=== PATIENT | female | born 1945 | race Caucasian/White ===

== ENCOUNTER 2019-06-11 21:38 | Inpatient (IN) | payer MEDICARE, MEDICAID ==
[~2019-06-11] VITALS: Ht 165.1 cm; Wt 87.1 kg
--- NOTE | 2019-06-11 21:55 | NUR ---
BIB FAMILY W/ C/O BILATERAL ANKLES AND R KNEE EDEMA AND PAIN X 1 DAY. NO CARDIAC HX. + HX OF RENAL DX AND ARTHRITIS. HAD IBUFROFEN AND NEURONTING MEDIA PLANNER W/ NO EFFECT.
[2019-06-11] MEDS ORDERED: KETOROLAC TROMETHAMINE 15 MG/ML VIAL ONE (22:45)
[2019-06-11] MEDS ORDERED: MORPHINE SULFATE INJ 4 MG/ML DISP.SYRIN ONE (22:45)
[2019-06-11] MEDS ORDERED: MORPHINE SULFATE INJ 2 MG/ML DISP.SYRIN IV ONE (23:00)
[2019-06-11] MEDS ORDERED: KETOROLAC TROMETHAMINE INJ 30 MG/ML VIAL IV ONE (23:00)
[2019-06-11 23:05] LABS: BASOPHILS % (AUTO) 0.5 % (0.0-2.0); EOSINOPHILS % (AUTO) 1.2 % (0.0-6.0); HEMATOCRIT 33 % (33-45); HEMOGLOBIN 10.8 g/dL (11.5-14.8); LYMPHOCYTES # (AUTO) 1.7 /CMM (0.8-4.8); LYMPHOCYTES % (AUTO) 19.6 % (20.0-44.0); MEAN CORPUSCULAR HGB CONC 33 g/dl (31.0-36.0); MEAN CORPUSCULAR VOLUME 89 fL (82-100); MONOCYTES # (AUTO) 0.9 /CMM (0.1-1.30); MONOCYTES % (AUTO) 10.2 % (2.0-12.0); NEUTROPHILS # (AUTO) 6.1 /CMM (1.8-8.9); NEUTROPHILS % (AUTO) 68.5 % (43.0-81.0); PLATELET COUNT (AUTO) 193 /CMM (150-450); RED BLOOD CELL COUNT(AUTO) 3.66 MIL/uL (4.0-5.2); WHITE BLOOD COUNT (AUTO) 8.9 K/uL (4.3-11.0)
[2019-06-11 23:16] LABS: CALCIUM, SERUM 10.1 mg/dL (8.5-10.1); CARBON DIOXIDE 24 mmol/L (21-32); CHLORIDE 101 mmol/L (98-107); CREATININE 1.7 mg/dL (0.6-1.3); GLUCOSE 210 mg/dL (74-106); POTASSIUM 4.7 mmol/L (3.5-5.1); SODIUM SERUM 137 mmol/L (136-145); UREA NITROGEN, BLOOD 27 mg/dL (7-18)
--- NOTE | 2019-06-11 23:30 | NUR ---
US TECH AT THE BED SIDE
[2019-06-11 23:32] LABS: ALANINE AMINOTRANSFERASE 35 U/L (12-78); ALBUMIN 3.7 g/dL (3.4-5.0); ALKALINE PHOSPHATASE 78 U/L (46-116); ASPARTATE AMINOTRANSFERASE 25 U/L (15-37); B-TYPE NATRIURETIC PEPTIDE 588 PG/ML (0-125); BILIRUBIN,DIRECT 0.2 mg/dL (0.0-0.2); BILIRUBIN,TOTAL 0.8 mg/dL (0.2-1.0); TOTAL PROTEIN, SERUM 8.6 g/dL (6.4-8.2)
--- NOTE | 2019-06-12 01:15 | NUR ---
Patient is resting comfortably in bed with eyes closed. Easily aroused. VSS
[2019-06-12] MEDS ORDERED: FUROSEMIDE 40 MG/4 ML VIAL IV ONE (01:30)
[2019-06-12] MEDS ORDERED: FUROSEMIDE 40 MG/4 ML VIAL ONE (01:30)
[2019-06-12] MEDS ORDERED: DEXAMETHASONE SOD PHOSPHATE 10 MG/ML VIAL ONE (02:27)
[2019-06-12] MEDS ORDERED: DEXAMETHASONE SOD PHOSPHATE 10 MG/ML VIAL IV ONE (02:30)
--- NOTE | 2019-06-12 02:49 | NUR ---
REPORT GIVEN TO SEUN PULIDO
[2019-06-12 03:00] VITALS: BP 145/67
--- NOTE | 2019-06-12 03:17 | NUR ---
PT WAS TRANSFERRED TO 310 UNDER ACLS PROTOCOL
[2019-06-12 03:30] VITALS: BP 145/67
[2019-06-12] MEDS ORDERED: ONDANSETRON HCL/PF 4 MG/2 ML VIAL IVP PRN (03:30)
[2019-06-12] MEDS ORDERED: ZOLPIDEM TARTRATE 5 MG TABLET PO PRN (03:30)
[2019-06-12] MEDS ORDERED: Z GUARD REMEDY 2 OZ OINT TP PRN (03:30)
[2019-06-12] MEDS ORDERED: ENOXAPARIN SODIUM 40 MG/0.4 ML DISP.SYRIN SQ SCH ×2 (03:30→09:00)
[2019-06-12] MEDS ORDERED: BUMETANIDE INJ 4 MG in IV NS 0.9% 24 ML IV ONE (03:30)
--- NOTE | 2019-06-12 03:30 | NUR ---
TELE/RN OPENING NOTES PT ARRIVED TO UNIT FROM ER VIA GURNEY. PT A/OX3. PLACED ON 2L O2 VIA NC, BREATHING EVEN AND UNLABORED. DENIES SOB AND PAIN AT THIS TIME. ONLY C/O WHEN TOUCHING BLE. IV TO RIGHT HAND PATENT AND INTACT. PLACED ON CORRECTIONAL SUPERVISOR, SHOWS SR 70'S. ORIENTED PT TO ROOM AND CALL LIGHT. BED IN LOW/LOCKED POSITION WITH CALL LIGHT IN REACH. HOB ELEVATED, BILAT. UPPER SIDE RAILS IN PLACE. BED ALARM ON FOR SAFETY. WILL CONTINUE TO MONITOR
[2019-06-12] MEDS ORDERED: BUMETANIDE INJ 0.25 MG/ML VIAL ONE (04:01)
[2019-06-12] MEDS: ENOXAPARIN SODIUM 30 MG/0.3 ML DISP.SYRIN SQ SCH (04:33)
[2019-06-12 04:54] LABS: BASOPHILS % (AUTO) 0.2 % (0.0-2.0); EOSINOPHILS % (AUTO) 0.5 % (0.0-6.0); HEMATOCRIT 32 % (33-45); HEMOGLOBIN 10.5 g/dL (11.5-14.8); LYMPHOCYTES # (AUTO) 1.1 /CMM (0.8-4.8); LYMPHOCYTES % (AUTO) 15.4 % (20.0-44.0); MEAN CORPUSCULAR HGB CONC 33 g/dl (31.0-36.0); MEAN CORPUSCULAR VOLUME 89 fL (82-100); MONOCYTES # (AUTO) 0.6 /CMM (0.1-1.30); MONOCYTES % (AUTO) 7.8 % (2.0-12.0); NEUTROPHILS # (AUTO) 5.4 /CMM (1.8-8.9); NEUTROPHILS % (AUTO) 76.1 % (43.0-81.0); PLATELET COUNT (AUTO) 173 /CMM (150-450); RED BLOOD CELL COUNT(AUTO) 3.56 MIL/uL (4.0-5.2); WHITE BLOOD COUNT (AUTO) 7.1 K/uL (4.3-11.0)
[2019-06-12 05:07] LABS: CALCIUM, SERUM 9.7 mg/dL (8.5-10.1); CARBON DIOXIDE 21 mmol/L (21-32); CHLORIDE 102 mmol/L (98-107); CREATININE 1.7 mg/dL (0.6-1.3); GLUCOSE 293 mg/dL (74-106); MAGNESIUM 1.6 mg/dL (1.8-2.4); PHOSPHORUS 4.3 mg/dL (2.5-4.9); POTASSIUM 4.5 mmol/L (3.5-5.1); SODIUM SERUM 137 mmol/L (136-145); UREA NITROGEN, BLOOD 27 mg/dL (7-18)
--- NOTE | 2019-06-12 06:31 | NUR ---
TELE/RN CLOSING NOTES PT ASLEEP, RESPONSIVE TO NAME. A/OX2-3. ON 2L O2 VIA NC, BREATHING EVEN AND UNLABORED. DENIES SOB AND PAIN AT THIS TIME, LONG LEGS ARE STATIONARY. IV TO RIGHT HAND RUNNING IVF BUMEX AT 10ML/HR. ON TELE MONITOR SHOWING SR 64. BED IN LOW/LOCKED POSITION WITH CALL LIGHT IN REACH. HOB ELEVATED. BILAT. UPPER SIDE RAILS IN PLACE. WILL ENDORSE TO DAY SHIFT RN ALDA.
--- NOTE | 2019-06-12 07:56 | NUR ---
BUTT MAKER NOTES PATIENT RECEIVED RESTING INSIDE ROOM. SLEEPING, EASILY AROUSABLE THROUGH VERBAL AND TACTILE STIMULI. BREATHING EVEN AND UNLABORED. NO ACUTE DISTRESS. NO C/O PAIN AT THIS TIME. PATIENT CALM AND RELAXED. CONTINUE WITH TELEMETRY, EDUCATIONAL/DEVELOPMENT ASSISTANT IN PLACE, SR. SAFETY PRECAUTIONS IN PLACE. WILL CONTINUE TO MONITOR. BED LOCKED AND IN LOW POSITION. BILATERAL UPPER SIDE RAILS UP AND LOCKED. CALL LIGHT WITHIN EASY REACH
[2019-06-12 08:00] VITALS: BP 136/81
[2019-06-12] MEDS ORDERED: NEBI5TAB8 PO (08:24)
[2019-06-12] MEDS ORDERED: ASPI-1152 PO (08:24)
[2019-06-12] MEDS ORDERED: ROSU10TA2 PO (08:24)
[2019-06-12] MEDS ORDERED: LEVO125T8 PO (08:24)
[2019-06-12] MEDS ORDERED: GLIM4TAB2 PO (08:24)
[2019-06-12] MEDS ORDERED: INSU100C10 SQ (08:24)
[2019-06-12] MEDS ORDERED: OLME40TA12 PO (08:24)
[2019-06-12] MEDS ORDERED: Medication Not On Formulary EA (Olmesartan Medoxomil (Benicar) 40 MG) PO SCH (09:00)
[2019-06-12] MEDS ORDERED: ASPIRIN EC 81 MG TABLET.DR PO SCH (09:00)
[2019-06-12] MEDS: LEVOTHYROXINE SODIUM 125 MCG TABLET PO SCH (09:29)
[2019-06-12] MEDS: ASPIRIN EC 81 MG TABLET.DR PO SCH (09:29)
[2019-06-12] MEDS: GLIMEPIRIDE 4 MG TABLET PO SCH ×2 (09:29→21:27)
[2019-06-12] MEDS: Magnesium 1GM/D5W 100ML PREMIX 100 ML IV SCH ×2 (09:29→10:39)
[2019-06-12] MEDS: LOSARTAN POTASSIUM 50 MG TABLET PO SCH (09:29)
[2019-06-12 10:33] LABS: THYROID STIMULATING HORMONE 1.239 uIU/mL (0.358-3.74)
[2019-06-12] MEDS ORDERED: INSULIN REGULAR, HUMAN 100 UNIT/ML 3 ML VIAL SQ PRN (12:00)
[2019-06-12] MEDS ORDERED: DEXTROSE 50%-WATER 50 ML DISP.SYRIN IV PRN (12:00)
[2019-06-12] MEDS: BLOOD SUGAR DIAGNOSTIC 1 EACH STRIP IN SCH ×3 (12:15→21:27)
--- NOTE | 2019-06-12 12:15 | NUR ---
MS RN NOTES PATIENT FSBS INITIAL RESULT 493. RECHECKED WITH RESULT OF 510. DR ADAMS PRESENT AT UNIT AND MADE AWARE. GAVE OK TO CONTINUE INSULIN ADMINISTRATION PER MILD SLIDING SCALE. PATIENT MADE AWARE AND VERBALIZED UNDERSTANDING. WILL ADMINISTER INSULIN PER SLIDING SCALE. WILL CONTINUE TO MONITOR
[2019-06-12 16:00] VITALS: BP 149/83
--- NOTE | 2019-06-12 16:32 | NUR ---
MS RN NOTES URINE COLLECTED AND SENT TO LAB
[2019-06-12 17:57] LABS: CREATININE, URINE 35.4 MG/DL (30.0-125.0); URINE TOTAL PROTEIN 7.5 mg/dL (0-11.9)
--- NOTE | 2019-06-12 18:10 | NUR ---
MS RN NOTES FSBS TAKEN WITH RESULT OF 442, RECHECKED WITH RESULT OF 459. PLACED CALL TO DR ADAMS AND MADE AWARE. WITH NEW ORDER TO CHANGE INSULIN SLIDING SCALE TO AGGRESSIVE. ORDER NOTED AND CARRIED OUT. PATIENT MADE AWARE AND VERBALIZED UNDERSTANDING. INSULIN ADMINISTERED ORDERED. WILL CONTINUE TO MONITOR
[2019-06-12] MEDS: INSULIN REGULAR, HUMAN 100 UNIT/ML 3 ML VIAL SQ PRN (18:23)
[2019-06-12 18:30] LABS: APPEARANCE,URINE CLEAR (CLEAR); BILIRUBIN,URINE NEGATIVE (NEGATIVE); BLOOD, URINE TRACE-INTA Ery/uL (NEGATIVE); COLOR,URINE YELLOW (YELLOW); KETONES,URINE NEGATIVE (NEGATIVE); LEUKOCYTE ESTERASE ,URINE NEGATIVE (NEGATIVE); NITRITE, URINE NEGATIVE (NEGATIVE); PH,URINE 5.5 (5.0-8.0); PROTEIN,URINE NEGATIVE (NEGATIVE); UGLUCOSE 3+ mg/dL (NEGATIVE); UROBILINOGEN,URINE 0.2 EU/dL (0.2)
--- NOTE | 2019-06-12 18:35 | NUR ---
MS RN NOTES PATIENT RESTING INSIDE ROOM. AWAKE, ALERT AND ORIENTED, VERBALLY RESPONSIVE AND RESPONDS TO VERBAL AND TACTILE STIMULI. BREATHING EVEN AND UNLABORED. NO ACUTE DISTRESS. NO CHANGES IN LOC NOTED. PATIENT KEPT CLEAN, DRY AND COMFORTABLE. WILL ENDORSE TO INCOMING SHIFT FOR ALDA. BED LOCKED AND IN LOW POSITION. BILATERAL UPPER SIDE RAILS UP AND LOCKED. CALL LIGHT WITHIN EASY REACH
[2019-06-12 18:42] LABS: BACTERIA,URINE None seen /HPF (None Seen); SQUAMOUS EPITHELIAL CELL,UR Rare /HPF (None Seen); WBC,URINE 0-2 /HPF (0-3)
[2019-06-12 18:54] LABS: EOSINOPHIL,URINE None Seen
--- NOTE | 2019-06-12 19:50 | NUR ---
MS RN NOTE: PATIENT RESTING IN BED, NO ACUTE DISTRESS NOTED. BREATHING EVEN AND UNLABORED, NO SOB NOTED. NO S/S OF HYPER/HYPOGLYCEMIA NOTED. BED LOCKED AND IN LOWEST POSITION, CALL LIGHT IN REACH. WILL CONTINUE TO MONITOR.
[2019-06-12 20:00] VITALS: BP 113/51
[2019-06-12] MEDS: METOPROLOL TARTRATE 25 MG TABLET PO SCH (21:27)
[2019-06-12] MEDS: ATORVASTATIN 10 MG TABLET PO SCH (21:28)
[2019-06-12] MEDS: *INSULIN REGULAR(HUMULIN R)HUM 100 UNIT/ML VIAL SQ PRN (21:37)
--- NOTE | 2019-06-12 21:45 | NUR ---
MS RN NOTE: PATIENT BLOOD SUGAR LEVEL 493MG/DL, REPEAT BLOOD SUGAR CHECK 469MG/DL, 10 UNITS OF INSULIN GIVEN PER SLIDING SCALE. PATIENT ALREADY CHANGED TO AGGRESSIVE SLIDING SCALE DURING DAYSHIFT. PATIENT DENIES ANY S/S OF HYPERGLYCEMIA LIKE INCREASE THIRST. CURTAIN STRETCHER ASSEMBLER RICH NUNES, CLOTH DRIER INFORMED WITH NO NEW ORDERS AND TO ADMINISTER SLIDING SCALE ORDERED AND TO CONTINUE TO MONITOR.
[2019-06-12] MEDS ORDERED: Medication Not On Formulary EA (Rosuvastatin Calcium (Crestor) 10 MG) PO SCH (22:00)
[2019-06-12] MEDS: ACETAMINOPHEN 325 MG TABLET PO PRN (22:05)
--- NOTE | 2019-06-12 23:15 | NUR ---
MS RN NOTE: PATIENT BLOOD SUGAR RECHECKED 450MG/DL, SLOWING TRENDING DOWN. NO S/S OF HYPERGLYCEMIA NOTED. WILL CONTINUE TO MONITOR.
[2019-06-13] MEDS: ENOXAPARIN SODIUM 30 MG/0.3 ML DISP.SYRIN SQ SCH (03:34)
--- NOTE | 2019-06-13 06:45 | NUR ---
MS RN NOTE: PATIENT RESTING IN BED, NO ACUTE DISTRESS NOTED. BREATHING EVEN AND UNLABORED, NO SOB NOTED. PATIENT BLOOD SUGAR LEVEL 346MG/DL, TO RECEIVE 16 UNITS OF INSULIN PER SLIDING SCALE, NO S/S OF HYPER/HYPOGLYCEMIA NOTED. BED LOCKED AND IN LOWEST POSITION, CALL LIGHT IN REACH. WILL ENDORSE TO DAY NURSE TO CONTINUE WITH PLAN OF CARE.
[2019-06-13 06:50] LABS: ALANINE AMINOTRANSFERASE 26 U/L (12-78); ALBUMIN 3.3 g/dL (3.4-5.0); ALKALINE PHOSPHATASE 71 U/L (46-116); ASPARTATE AMINOTRANSFERASE 9 U/L (15-37); BILIRUBIN,TOTAL 0.4 mg/dL (0.2-1.0); CALCIUM, SERUM 10.3 mg/dL (8.5-10.1); CARBON DIOXIDE 26 mmol/L (21-32); CHLORIDE 96 mmol/L (98-107); CREATININE 2.4 mg/dL (0.6-1.3); GLUCOSE 344 mg/dL (74-106); MAGNESIUM 2.4 mg/dL (1.8-2.4); PHOSPHORUS 4.8 mg/dL (2.5-4.9); POTASSIUM 4.1 mmol/L (3.5-5.1); SODIUM SERUM 132 mmol/L (136-145); TOTAL PROTEIN, SERUM 8.2 g/dL (6.4-8.2); UREA NITROGEN, BLOOD 57 mg/dL (7-18)
[2019-06-13] MEDS: BLOOD SUGAR DIAGNOSTIC 1 EACH STRIP IN SCH ×4 (06:50→22:09)
[2019-06-13] MEDS: INSULIN REGULAR, HUMAN 100 UNIT/ML 3 ML VIAL SQ PRN ×3 (06:50→17:44)
[2019-06-13 06:51] LABS: BASOPHILS % (AUTO) 0.2 % (0.0-2.0); EOSINOPHILS % (AUTO) 0.1 % (0.0-6.0); HEMATOCRIT 33 % (33-45); HEMOGLOBIN 10.9 g/dL (11.5-14.8); LYMPHOCYTES # (AUTO) 1.6 /CMM (0.8-4.8); LYMPHOCYTES % (AUTO) 15.8 % (20.0-44.0); MEAN CORPUSCULAR HGB CONC 33 g/dl (31.0-36.0); MEAN CORPUSCULAR VOLUME 88 fL (82-100); MONOCYTES # (AUTO) 1.1 /CMM (0.1-1.30); NEUTROPHILS # (AUTO) 7.3 /CMM (1.8-8.9); NEUTROPHILS % (AUTO) 72.9 % (43.0-81.0); PLATELET COUNT (AUTO) 263 /CMM (150-450); RED BLOOD CELL COUNT(AUTO) 3.76 MIL/uL (4.0-5.2)
[2019-06-13 06:57] LABS: CHOLESTEROL 199 mg/dL (<200); CREATINE KINASE, TOTAL 118 U/L (26-192); HDL CHOLESTEROL 47 mg/dL (40-60); LDL 122 mg/dL (0-99); THYROID STIMULATING HORMONE 0.929 uIU/mL (0.358-3.74); TRIGLYCERIDES 174 mg/dL (30-150)
[2019-06-13 07:00] LABS: IRON, SERUM 28 ug/dl (50-175); TOTAL IRON BINDING CAPACITY 226 ug/dl (250-450)
[2019-06-13] MEDS: ACETAMINOPHEN 325 MG TABLET PO PRN ×2 (07:34→17:55)
--- NOTE | 2019-06-13 07:40 | NUR ---
MS RN RECEIVED ON BED, AWAKE,ALERT,ORIENTED X3,NOT IN ANY FORM OF DISTRESS, RESPIRATIONS EVEN AND UNLABORED,NO SOB NOTED,LUNGS ARE CLEAR,ABDOMEN SOFT,POSITIVE BOWEL SOUNDS,DENIES PAIN AT THIS TIME, ALL NEEDS ATTENDED.
[2019-06-13 08:00] VITALS: BP 122/65
[2019-06-13 08:46] VITALS: BP 116/60
[2019-06-13] MEDS: ASPIRIN EC 81 MG TABLET.DR PO SCH (08:50)
[2019-06-13] MEDS: LEVOTHYROXINE SODIUM 125 MCG TABLET PO SCH (08:51)
[2019-06-13] MEDS: LOSARTAN POTASSIUM 50 MG TABLET PO SCH (08:52)
[2019-06-13] MEDS: GLIMEPIRIDE 4 MG TABLET PO SCH ×2 (08:53→20:37)
[2019-06-13] MEDS: METOPROLOL TARTRATE 25 MG TABLET PO SCH ×2 (08:55→20:38)
--- NOTE | 2019-06-13 09:00 | NUR ---
MS PULIDO BREAKFAST SERVED,DUE MEDS GIVEN,TOLERATED WELL.
--- NOTE | 2019-06-13 10:30 | NUR ---
MS RN WAS SEEN BY DR. OSWALDO Murry/ SANDIE MADE AND CARRIED OUT.
[2019-06-13] MEDS: COLCHICINE 0.6 MG TABLET PO SCH (11:45)
[2019-06-13 12:07] LABS: *SPE ALBUMIN 3.6 g/dL (2.9-4.4); *SPE ALPHA-1-GLOBULIN 0.3 g/dL (0.0-0.4); *SPE ALPHA-2-GLOBULIN 1.1 g/dL (0.4-1.0); *SPE BETA GLOBULIN 1.3 g/dL (0.7-1.3); *SPE GLOBULIN, TOTAL 3.7 g/dL (2.2-3.9); *SPE M-SPIKE Not Observed g/dL (Not Observed); *SPEGAMMA GLOBULIN 1.1 g/dL (0.4-1.8)
--- NOTE | 2019-06-13 14:00 | NUR ---
MS RN WAS SEEN BY ЕЛЕНА ,WAS ABLE TO SPEAK W/ DAUGHTER,ALL NEEDS ATTENDED.
[2019-06-13 16:00] VITALS: BP 140/80
[2019-06-13] MEDS: predniSONE 20 MG TABLET PO SCH (17:38)
[2019-06-13] MEDS: DOCUSATE SODIUM 100 MG CAPSULE PO SCH (17:41)
[2019-06-13] MEDS: IV NS 0.9% 1,000 ML IV PRN (17:59)
--- NOTE | 2019-06-13 18:00 | NUR ---
MS PULIDO BS- 199 - 4 UNITS OF REGULAR INSULIN GIVEN.
--- NOTE | 2019-06-13 18:56 | NUR ---
MS RN ON BED, NO INSULIN GIVEN,ALL NEEDS ATTENDED.
--- NOTE | 2019-06-13 19:55 | NUR ---
RN NOTES RECEIVED PATIENT AWAKE, IN BED, BELGIAN SPEAKING, NO ACUTE SIGNS OF DISTRESS, REPOSITIONED FOR COMFORT, SAFETY MEASURES IN PLACE, ASPIRATION PRECAUTION EMPHASIZE, IV ACCESS ON HER LEFT AC G#22 INTACT AND PATENT. ALL NEEDS ATTENDED, CALL LIGHT WITHIN EASY REACH, WILL CONTINUE TO MONITOR ACCORDINGLY.
[2019-06-13 20:00] VITALS: BP 135/75
[2019-06-13] MEDS ORDERED: HYDROCODONE/APAP 5/325MG 1 EACH TABLET PO PRN (20:30)
[2019-06-13] MEDS ORDERED: MORPHINE SULFATE INJ 2 MG/ML DISP.SYRIN IV PRN (21:00)
[2019-06-13] MEDS ORDERED: INSULIN GLARGINE, 100 UNIT/ML CARTRIDGE SQ SCH (22:00)
[2019-06-13] MEDS: ATORVASTATIN 10 MG TABLET PO SCH (22:09)
[2019-06-13] MEDS: *INSULIN REGULAR(HUMULIN R)HUM 100 UNIT/ML VIAL SQ PRN (22:35)
[2019-06-14] MEDS: ENOXAPARIN SODIUM 30 MG/0.3 ML DISP.SYRIN SQ SCH (03:56)
--- NOTE | 2019-06-14 06:10 | NUR ---
RN NOTES ALL NEEDS ATTENDED AND MET, ABLE TO REST AND SLEEP AT INTERVALS, DENIES ANY PAIN OR DISCOMFORT AT THIS TIME, SAFETY MEASURES IN PLACE, ASPIRATION PRECAUTION EMPHASIZE, CALL LIGHT WITHIN EASY REACH, WILL ENDORSE TO AM NURSE FOR CONTINUITY OF CARE.
[2019-06-14] MEDS: IV NS 0.9% 1,000 ML IV PRN (06:26)
[2019-06-14] MEDS: INSULIN REGULAR, HUMAN 100 UNIT/ML 3 ML VIAL SQ PRN ×2 (06:51→12:24)
[2019-06-14] MEDS: BLOOD SUGAR DIAGNOSTIC 1 EACH STRIP IN SCH ×2 (06:52→12:22)
[2019-06-14 07:12] LABS: BASOPHILS % (AUTO) 0.2 % (0.0-2.0); EOSINOPHILS % (AUTO) 0.1 % (0.0-6.0); HEMATOCRIT 32 % (33-45); HEMOGLOBIN 10.4 g/dL (11.5-14.8); LYMPHOCYTES # (AUTO) 1.3 /CMM (0.8-4.8); LYMPHOCYTES % (AUTO) 18.1 % (20.0-44.0); MEAN CORPUSCULAR HGB CONC 33 g/dl (31.0-36.0); MEAN CORPUSCULAR VOLUME 89 fL (82-100); MONOCYTES # (AUTO) 0.4 /CMM (0.1-1.30); NEUTROPHILS # (AUTO) 5.4 /CMM (1.8-8.9); NEUTROPHILS % (AUTO) 76.6 % (43.0-81.0); PLATELET COUNT (AUTO) 237 /CMM (150-450); RED BLOOD CELL COUNT(AUTO) 3.58 MIL/uL (4.0-5.2); WHITE BLOOD COUNT (AUTO) 7.1 K/uL (4.3-11.0)
[2019-06-14 07:22] LABS: URIC ACID 8.6 mg/dL (2.6-7.2)
[2019-06-14 07:23] LABS: CALCIUM, SERUM 9.8 mg/dL (8.5-10.1); CARBON DIOXIDE 26 mmol/L (21-32); CHLORIDE 102 mmol/L (98-107); CREATININE 1.8 mg/dL (0.6-1.3); GLUCOSE 331 mg/dL (74-106); MAGNESIUM 2.1 mg/dL (1.8-2.4); PHOSPHORUS 4.7 mg/dL (2.5-4.9); SODIUM SERUM 136 mmol/L (136-145); UREA NITROGEN, BLOOD 59 mg/dL (7-18)
--- NOTE | 2019-06-14 07:55 | NUR ---
MS RN RECEIVED ON BED, AWAKE,ALERT,ORIENTED X4,NOT IN ANY FORM OF DISTRESS, RESPIRATIONS EVEN AND UNLABORED,NO SOB NOTED, LUNGS ARE DIMINISH, ABDOMEN SOFT,POSITIVE BOWEL SOUNDS,DENIES PAIN AT THIS TIME, WILL MONITOR PATIENT.
[2019-06-14 08:00] VITALS: BP 150/84
[2019-06-14] MEDS ORDERED: PRED20TA PO (08:15)
[2019-06-14] MEDS ORDERED: Colchicine PO (08:15)
[2019-06-14] MEDS ORDERED: Insulin Glargine,Hum SQ (08:15)
--- NOTE | 2019-06-14 08:30 | NUR ---
MS RN WAS SEEN BY ALONZO TOSCANO/ DARRYL TO GO HOME TODAY.
[2019-06-14] MEDS: GLIMEPIRIDE 4 MG TABLET PO SCH (09:11)
[2019-06-14] MEDS: ASPIRIN EC 81 MG TABLET.DR PO SCH (09:11)
[2019-06-14] MEDS: DOCUSATE SODIUM 100 MG CAPSULE PO SCH (09:11)
[2019-06-14] MEDS: predniSONE 20 MG TABLET PO SCH (09:11)
[2019-06-14] MEDS: COLCHICINE 0.6 MG TABLET PO SCH (09:12)
[2019-06-14 09:13] VITALS: BP 150/84
[2019-06-14] MEDS: METOPROLOL TARTRATE 25 MG TABLET PO SCH (09:13)
[2019-06-14] MEDS: LEVOTHYROXINE SODIUM 125 MCG TABLET PO SCH (09:14)
--- NOTE | 2019-06-14 09:20 | NUR ---
MS PULIDO BREAKFAST SERVED,DUE MEDS GIVEN,TOLERATED WELL.
[2019-06-14 12:07] LABS: *SPE A/G RATIO 0.9 (0.7-1.7); *SPE ALBUMIN 3.6 g/dL (2.9-4.4); *SPE ALPHA-1-GLOBULIN 0.4 g/dL (0.0-0.4); *SPE ALPHA-2-GLOBULIN 1.1 g/dL (0.4-1.0); *SPE BETA GLOBULIN 1.3 g/dL (0.7-1.3); *SPE GLOBULIN, TOTAL 3.9 g/dL (2.2-3.9); *SPE M-SPIKE Not Observed g/dL (Not Observed); *SPEGAMMA GLOBULIN 1.1 g/dL (0.4-1.8)
--- NOTE | 2019-06-14 13:00 | NUR ---
MS RN PATIENT READY TO GO HOME, WAITING FOR SON TO PICK HER UP.
[2019-06-14 13:09] LABS: PTH, INTACT 73 pg/mL (15-65)
--- NOTE | 2019-06-14 15:00 | NUR ---
MS RN SON CAME, PATIENT DISCHARGE TO HOME W/ PRESCRIPTIONS,ALL NEEDS ATTENDED.
== END 2019-06-14 14:15 | disposition home or self-care (01) | DRG 553 ==
LOC: ER 21:45 → TELE 06-12 02:35 → MED 06-12 09:35
PROVIDERS: ADMIT Hospitalist; ATTEND Family Medicine
DX: M10.9 Gout, unspecified (principal); N17.0 Acute kidney failure with tubular necrosis; I13.0 Hypertensive heart and chronic kidney disease with heart failure and stage 1 through stage 4 chronic kidney disease, or unspecified chronic kidney disease; E87.1 Hypo-osmolality and hyponatremia; N13.30 Unspecified hydronephrosis; M06.9 Rheumatoid arthritis, unspecified; N18.9 Chronic kidney disease, unspecified; I50.9 Heart failure, unspecified; E10.65 Type 1 diabetes mellitus with hyperglycemia; E10.22 Type 1 diabetes mellitus with diabetic chronic kidney disease; Z79.4 Long term (current) use of insulin; Z85.038 Personal history of other malignant neoplasm of large intestine; D64.9 Anemia, unspecified; E78.5 Hyperlipidemia, unspecified; Z98.890 Other specified postprocedural states; Z79.84 Long term (current) use of oral hypoglycemic drugs; Z79.899 Other long term (current) drug therapy; E66.9 Obesity, unspecified; E83.42 Hypomagnesemia; E83.52 Hypercalcemia; E86.1 Hypovolemia; Z68.32 Body mass index [BMI] 32.0-32.9, adult; T38.0X5A Adverse effect of glucocorticoids and synthetic analogues, initial encounter; Y92.009 Unspecified place in unspecified non-institutional (private) residence as the place of occurrence of the external cause
CPT/HCPCS: 36415; 71045-TC; 76770-TC; 80048-TC; 80053-TC; 80061-TC; 80076-TC; 81000-TC; 82550-TC; 82570-TC; 82728-TC; 82962-TC; 83540-TC; 83735-TC; 83880; 83970; 84100-TC; 84155; 84155-TC; 84165; 84300-TC; 84439-TC; 84443-TC; 84484-TC; 84550-TC; 85025-TC; 85652-TC; 86140-TC; 86431-TC; 87081-TC; 93307-TC; 93970-TC; 97110-TC; 97112-TC; 97116-TC; 97530-TC; A4216; A6403; G0378; J1100; J1650; J1815; J1885; J1940; J2270; J3475; J3490; J7030